=== PATIENT | male | born 1950 | race Caucasian/White ===

== ENCOUNTER → 2020-06-27 | Outpatient (CLI) | payer MEDICARE ==
[~2020-06-27] MED LIST: OMNIPAQUE 350 MG/ML, 100ML BOTTLE ONE
== END | disposition home or self-care (01) ==
LOC: CFH 14:08
PROVIDERS: ATTEND Surgery
DX: K40.90 Unilateral inguinal hernia, without obstruction or gangrene, not specified as recurrent (principal); I77.811 Abdominal aortic ectasia; M51.35 Other intervertebral disc degeneration, thoracolumbar region; I87.8 Other specified disorders of veins
CPT/HCPCS: 74177; 82565; Q9967

== ENCOUNTER → 2020-08-02 | Outpatient (CLI) | payer MEDICARE ==
[~2020-08-02] MED LIST changes: +ASPI-691 PO; +DIAZ5TAB4 PO; +IBUP200T64 PO; -OMNIPAQUE 350 MG/ML, 100ML BOTTLE ONE; +ROSU5TAB PO; +TRIA0.2576 PO; +Tylenol # 4 PO
== END | disposition home or self-care (01) ==
LOC: STAR 11:28
PROVIDERS: ATTEND Surgery
DX: Z01.818 Encounter for other preprocedural examination (principal); K40.90 Unilateral inguinal hernia, without obstruction or gangrene, not specified as recurrent; Z20.822 Contact with and (suspected) exposure to COVID-19
CPT/HCPCS: 87635; 93005

== ENCOUNTER 2020-08-08 10:21 | Day surgery (SDC) | payer MEDICARE, OTHER ==
[~2020-08-08] VITALS: Ht 182.9 cm; Wt 96.8 kg
[~2020-08-08 10:21] MED LIST changes: +BUPIVACAINE/PF 0.5% ONE; +EPINEPHRINE 1 MG/ML, 1ML ONE
[2020-08-08 11:05] VITALS: BP 127/85
[2020-08-08] MEDS ORDERED: LACTATED RINGERS 1,000 ML IV SCH (11:30)
[2020-08-08] MEDS ORDERED: CHLORHEXIDINE 15 ML UDC MM ONE (11:30)
[2020-08-08] MEDS ORDERED: FENTANYL PF 250 MCG/5ML ONE (12:34)
[2020-08-08] MEDS ORDERED: ROCURONIUM 10MG/ML,5ML ONE (12:34)
[2020-08-08] MEDS ORDERED: LIDOCAINE-MPF 2% ,5ML ONE (12:34)
[2020-08-08] MEDS ORDERED: PROPOFOL 10 MG/ML, 20ML ONE (12:34)
[2020-08-08] MEDS ORDERED: CEFAZOLIN 1,000 MG ONE ×2 (12:48)
[2020-08-08] MEDS ORDERED: DEXAMETHASONE 4 MG/ML, 1ML ONE ×3 (12:53)
[2020-08-08] MEDS ORDERED: ACETAMINOPHEN 325 MG TABLET PO PRN (13:00)
[2020-08-08] MEDS ORDERED: ONDANSETRON 2MG/ML, 2ML IVPush PRN (13:00)
[2020-08-08] MEDS ORDERED: KETOROLAC 30 MG/1 ML ONE (13:22)
[2020-08-08] MEDS ORDERED: ONDANSETRON 2MG/ML, 2ML ONE (13:22)
[2020-08-08] MEDS ORDERED: SUGAMMADEX 200 MG/2 ML IVPush ONE (13:24)
[2020-08-08] MEDS ORDERED: OXYC5TAB98 PO (13:34)
[2020-08-08] MEDS ORDERED: ACETAMINOPHEN 325 MG TABLET ONE (13:59)
[2020-08-08] MEDS ORDERED: FENTANYL PF 100 MCG/2ML ONE (13:59)
[2020-08-08] MEDS ORDERED: OXYcodone 5 MG/5 ML ORAL.SOL UDC ONE ×2 (14:00→14:18)
[2020-08-08] MEDS: FENTANYL PF 100 MCG/2ML IV PRN ×2 (14:00→14:10)
[2020-08-08] MEDS: OXYcodone 5 MG/5 ML ORAL.SOL UDC PO PRN ×2 (14:10→14:19)
[2020-08-08] MEDS ORDERED: HYDROmorphone 1 MG/ML, 1ML INJ ONE (14:18)
== END 2020-08-08 15:55 | disposition home or self-care (01) ==
LOC: OUT 10:21
PROVIDERS: ATTEND Surgery
DX: K40.90 Unilateral inguinal hernia, without obstruction or gangrene, not specified as recurrent (principal); I10 Essential (primary) hypertension; G43.909 Migraine, unspecified, not intractable, without status migrainosus; M19.90 Unspecified osteoarthritis, unspecified site; Z79.899 Other long term (current) drug therapy
CPT/HCPCS: 49650; C1781; J0171; J0690; J1100; J1885; J2405; J2704; J3010; J7120